=== PATIENT | male | born 1930 | race Caucasian/White ===

== ENCOUNTER → 2017-11-17 | Outpatient (CLI) | payer MEDICARE ==
--- NOTE | 2017-11-17 10:25 | RAD ---
Examination: 2 views of the left hip History: History of left hip pain Comparison: None available Findings: The left femoral head is within the acetabulum. There is mild joint space loss identified in the left hip joint. There is no acute fracture or dislocation identified. Surgical clips project in the pelvis. Impression: Mild degenerative changes left hip joint.
== END | disposition home or self-care (01) ==
LOC: DXRAD 09:48
PROVIDERS: ATTEND Internal Medicine Rheumatology
DX: M16.12 Unilateral primary osteoarthritis, left hip (principal)
CPT/HCPCS: 73502

== ENCOUNTER → 2018-11-22 | Outpatient (CLI) | payer MEDICARE ==
--- NOTE | 2018-11-22 13:42 | RAD ---
EXAM: CT Abdomen and Pelvis without IV contrast CLINICAL HISTORY: Gross hematuria, LLQ pain COMPARISON: CT 08/07/2015, 03/04/2016, 07/18/2015 TECHNIQUE: Helical CT of the abdomen and pelvis without intravenous contrast. Axial, coronal and sagittal reformatted images were generated. PQRS compliance statement - One or more of the following individualized dose reduction techniques were utilized for this study: 1. Automated exposure control 2. Adjustment of the mA and/or kV according to patient size 3. Use of iterative reconstruction technique FINDINGS: Lack of intravenous contrast limits evaluation of solid organs, vasculature, and lymph nodes. Lower chest: Linear opacities in the middle lobe, lower lobes and lingula likely scarring/atelectasis. 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 Abdomen and Pelvis: Subcentimeter hypoattenuation within the left hepatic lobe too small to characterize. Large calcified gallstone is seen within the gallbladder. No biliary ductal dilatation. Spleen is unremarkable. Adrenal glands are normal. Pancreas is unremarkable. A 5 mm left lower pole nonobstructing renal calculus is seen. No definite right renal calculus, ureteral or bladder calculi are seen. A right lower pole 3.4 cm cystic lesion is grossly stable. No hydronephrosis. No hydroureter. The bladder is decompressed limiting evaluation. Appendix is normal. No small or large bowel dilatation to suggest bowel obstruction. Moderate colonic stool content is seen. Colonic diverticulosis without evidence for acute diverticulitis. The aorta measures 3.7 cm at the level of the celiac artery. The aorta has a more normal caliber in the infrarenal portion. Dense atherosclerotic calcifications are seen. No abdominal or pelvic ascites. No abdominal or pelvic lymphadenopathy. Bones: Multilevel degenerative changes of spine are seen. Posterior decompression and fusion at L4-5. Diffusely decreased bone mineral density. A 1.8 cm lucent lesion is seen within the right iliac wing, unchanged to 07/18/2015 IMPRESSION: 1. Nonobstructing left lower pole renal calculus. No definite ureteral or bladder calculi 2. The bladder is decompressed limiting further evaluation. 3. On this noncontrast exam, no definite bladder or renal mass is identified however consider further evaluation with MRI or CT urogram as clinically indicated given gross hematuria. 4. Colonic diverticulosis without evidence for acute diverticulitis. 5. Thoracoabdominal aortic aneurysm as above. Electronically signed by: Reji Valentin MD (11/22/2018 1:39 PM) [facility]
== END | disposition home or self-care (01) ==
LOC: CT 09:44
PROVIDERS: ATTEND General Practice
DX: I71.6 Thoracoabdominal aortic aneurysm, without rupture (principal); N20.0 Calculus of kidney; K57.30 Diverticulosis of large intestine without perforation or abscess without bleeding; I70.0 Atherosclerosis of aorta; N28.1 Cyst of kidney, acquired; K80.80 Other cholelithiasis without obstruction
CPT/HCPCS: 74176